=== PATIENT | female | born 1985 | race Caucasian/White ===

== ENCOUNTER 2024-03-19 10:04 | Outpatient (CLI) | payer OTHER, SELFPAY ==
[2024-03-19 14:37] LABS: Bacterial Vaginosis* POSITIVE (Negative); Candida glab/krus NOT DETECTED (No Detected); Candida species NOT DETECTED (No Detected); Trichomonas vaginalis NOT DETECTED (No Detected)
== END 2024-03-19 10:05 | disposition home or self-care (01) ==
LOC: FRMREF 10:04
PROVIDERS: Visit Provider Obstetrics & Gynecology
DX: N89.8 Other specified noninflammatory disorders of vagina (principal)
CPT/HCPCS: 81513; 87481; 87661

== ENCOUNTER 2024-07-18 14:54 | Outpatient (CLI) | payer OTHER, SELFPAY | END 2024-07-18 14:55 | disposition home or self-care (01) | LOC: NFLDREF 07-23 01:11 | PROVIDERS: Visit Provider Nurse Practitioner Family | DX: R10.9 Unspecified abdominal pain (principal); R39.89 Other symptoms and signs involving the genitourinary system | CPT/HCPCS: 87086 ==

== ENCOUNTER 2024-07-18 15:40 | Emergency (ER) | payer OTHER, SELFPAY ==
--- OUTSIDE RECORDS SUMMARY | 2024-07-18 15:42 | XMS_ITS | Clinical Summary ---
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 02/19 Overview (02/29/2024): 02/2024 ASCUS/HPV negative Plan: HPV-based testing due 02/2027 Social History Tobacco Use Types Packs/Day Years Used Date Smoking Tobacco: Never Smokeless Tobacco: Never Tobacco Cessation:Counseling Given: Not Answered Alcohol Use Standard Drinks/Week Comments Yes 0 (1 standard drink = 0.6 oz pur e alcohol) PHQ-2 Answer Date Recorded PHQ-2 TOTAL SCORE 0 02/21/2024 Comments No Sex and Gender Information Value Date Recorded Sex Assigned at Not on file Legal Sex Female 10:26 AM LAB ENGINEER Gender Identity Not on file Sexual Orientation Not on file Obstetrics History Para Term AB IAB SAB Ectopic Multiple Livin g Live Births 7 5 5 2 2 5 Date Outcome GA Total Labor Labor/2nd/3rd Weight Sex Type Anes PTL Diane A1 A5 Name Clin SAB SAB Term Term Term Term Term Last Filed Vital Signs Vital Sign Reading Time Taken Comments Blood Pressure 102/60 02/21/2024 4:10 PM LAB ENGINEER Pulse 74 02/21/2024 4:10 PM LAB ENGINEER Temperature - - Respiratory Rate - - Oxygen Saturation - - Inhaled Oxygen Concentration - - Weight 59.9 kg (132 lb) 02/21/2024 4:10 PM LAB ENGINEER Height 157.5 cm (5' 2) 02/21/2024 4:10 PM LAB ENGINEER Body Mass Index 24.14 02/21/2024 4:10 PM LAB ENGINEER Plan of Treatment Health Maintenance Due Date Last Done Comments Tdap 1997 HIV for age 15-65 2001 Hepatitis C screening for ag e 18-79 2004 Hepatitis B series for 19+ ( 1 of 3 - 19+ 3-dose series) 2005 Tetanus booster 2006 COVID-19 vaccine series ( season) 2023 Influenza Vaccine (Season Ended) 2024 BMI (ht and wt on same day) for age 18+ 02/20/2025 02/21/2024 Depression screening for age 12+ 02/20/2025 02/21/2024 Pap test for age 21-65 02/20/2027 , 02/21/2024 Pneumococcal series for age 6-49 Aged Out No longer eligible b ased on patient's age to complete this topic Procedures Procedure Name Priority Date/Time Associated Diagnosis Comments GLAZIER STRUCT[employer] GLASS THIN PREP PAP SCREEN IMAGED Routine 02/21/2024 4:09 PM LAB ENGINEER Screening for malignant neoplasm of cervix from Last 3 Months or Most Recently Relevant to Health Maintenance Results * (ABNORMAL) GLAZIER STRUCT[employer] GLASS THIN PREP PAP SCREEN IMAGED (02/21/2024 4:09 PM LAB ENGINEER) Case Report Gynecologic Cytology Report Case: [id number] Authorizing Provider: Liliana Yanes NP Collected: 02/21/2024 1609 Ordering Location: [facility] Received: 02/22/2024 0[facility] First Screen: Juju Bender Pathologist: Shruthi Narvaez MD Specimen: GLAZIER STRUCTURAL GLASS ThinPrep Vial Screening, Cervical 02/29/2024 2:20 PM LAB ENGINEER [facility] INTERPRETATION/ RESULT ATYPICAL SQUAMOUS CELLS OF UNDETERMINED SIGNIFICANCE (ASCUS)(A) (none) 02/29/2024 2:20 PM LAB ENGINEER [facility] at 1420 LAB ENGINEER SPECIMEN ADEQUACY Satisfactory for evaluation Endocervical component present 02/29/2024 2:20 PM LAB ENGINEER [facility] HPV REQUEST HPV and PAP 02/29/2024 2:20 PM LAB ENGINEER [facility] Date of LMP 12-16-24 02/29/2024 2:20 PM LAB ENGINEER [facility] Last Pap Date outside [facility] 025 2:20 PM LAB ENGINEER [facility] Last Pap Result NIL 2:20 PM LAB ENGINEER [facility] Abnormal Pap or [place] Bx in last 5 years Yes 02/29/2024 2:20 PM LAB ENGINEER [facility] Menstrual Status Regular Periods 02/29/2024 2:20 PM LAB ENGINEER [facility] [place] Bx Done Today No 02/29/2024 2:20 PM LAB ENGINEER [facility] Additional Information None given 02/29/2024 2:20 PM LAB ENGINEER [facility] Comment: Cytology is screened at [facility] - [address], [place] [address] and [facility] - [address], [place] [address] and [facility] - [address] [place] [address] Interpreted at [facility] - [address], [place] [address] Automated Review Successful 02/29/2024 2:20 PM LAB ENGINEER [facility] Comment:Specimen processed s uccessfully by automated clothes designer device, ThinPrep Imaging System, [employer] ANCILLARY TESTING GLAZIER STRUCTURAL GLASS HPV Ordered, Please see separate report 02/29/2024 2:20 PM LAB ENGINEER [facility] Note The pap test is a screening technique, not a diagnostic procedure. It is used primarily to screen for squamous cancers and precursor lesions. Published studies have shown that it is subject to both false negative and false positive results. The pap test should not be used as the sole means to diagnose or exclude pre-malignant and malignant lesions. 02/29/2024 2:20 PM LAB ENGINEER [facility] Other (Cervical) Non-Blood / Unknown 02/21/2024 4:09 PM LAB ENGINEER 02/22/2024 7:53 AM LAB ENGINEER [place] Liliana Yanes NP PATHOLOGY/CYTOLOGY Renetta jeter Result [facility] [address] [place] [address], [place] from Last 3 Months or Most Recently Relevant to Health Maintenance Insurance [facility] [employer] Care Teams Telegraph Repeater Installer Relationship Specialty Start Date End Date Pcp, No . PCP - General 02/16/24
--- OUTSIDE RECORDS SUMMARY | 2024-07-18 15:42 | XMS_ITS | Clinical Summary ---
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
--- OUTSIDE RECORDS SUMMARY | 2024-07-18 15:42 | XMS_ITS | Encounter Summary ---
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 Name Role Phone Unavailable Primary Care Provider Unavailabl e Prior Encounters Date Type Department Care Team Description 03/10/2019 Converted CPS Chart Documents [facility] [address] [place] [id number] <No scans attached> 03/10/2019 Converted 13x Documents [facility] [address] [place] [id number] <No scans attached> Plan of Treatment Not on file Procedures Procedure Name Priority Date/Time Associated Diagnosis Comments CHLORHEXIDINE Routine 02/06/2018 2:00 AM DELIVERY AND INSTALLATION SUBCONTRACTOR 32 LIMITED ORAL EVALUATION - PROBLEM FOCUSED Routine 02/06/2018 2:00 AM DELIVERY AND INSTALLATION SUBCONTRACTOR PANORAMIC RADIOGRAPHIC IMAGE Routine 02/06/2018 2:00 AM DELIVERY AND INSTALLATION SUBCONTRACTOR ADDITIONAL X-RAY Routine 02/06/2018 2:00 AM DELIVERY AND INSTALLATION SUBCONTRACTOR SINGLE X-RAY Routine 02/06/2018 2:00 AM DELIVERY AND INSTALLATION SUBCONTRACTOR Visit Diagnoses Not on file
[2024-07-18 15:48] VITALS: BP 119/81; PULSE 97; RESP 16; TEMP 36.9; O2SAT 99; BMI 23.8
--- NOTE | 2024-07-18 16:01 | CRLHL7_ITS ---
For Patients: As a result of the Century Cures Act, medical imaging exams and procedure reports are released immediately into your electronic medical record. You may view this report before your referring provider. If you have questions, please contact your health care provider. INDICATION: RT FLANK PAIN X 4 DAYS, UTI TECHNIQUE: CT abdomen and pelvis acquired with 64 cc Isovue 370 IV contrast. COMPARISON: None. FINDINGS: Lower chest: The visualized lower lungs are aerated. No pleural or pericardial effusion. ABDOMEN: Liver: Normal enhancement. No focal suspicious hepatic lesions. Gallbladder and biliary: Normal gallbladder without radiopaque stone. Normal caliber bile ducts. Spleen: Normal size and enhancement. Pancreas: Normal enhancement without peripancreatic inflammatory changes or ductal dilatation. Adrenal glands: Normal adrenal glands. Kidneys and ureters: Mild right-sided hydroureteronephrosis with associated ureteral hyperemia. No discrete obstructing stone.. Punctate nonobstructing right-sided renal stone. Normal renal enhancement. GI tract: Stomach is partially distended with oral debris and air. Normal caliber small and large bowel loops. Normal appendix. Vascular structures: Normal caliber abdominal aorta. Lymph nodes: No lymphadenopathy in the abdomen or pelvis by size criteria. Peritoneum: Trace free fluid pelvis. No free air or focal drainable collection. PELVIS: Genitourinary system: Retroverted uterus. Age-appropriate ovaries. Dominant left ovarian corpus luteum cyst. There is hyperemia and circumferential wall thickening of the urinary bladder. Recommend correlation with urinalysis if not already performed to assess for underlying cystitis. SKELETAL STRUCTURES AND SOFT TISSUES: Transitional lumbosacral anatomy. IMPRESSION: Hyperemia and circumferential wall thickening of the urinary bladder. Associated mild right-sided hydroureteronephrosis with ureteral hyperemia without obstructing stone. Constellation of findings raise concern for underlying developing ascending urinary tract infection. No discrete abnormal enhancement of the renal parenchyma. Please note that all CT scans at this facility use dose modulation, iterative reconstruction, and/or weight-based dosing when appropriate to reduce radiation dose to as low as reasonably achievable. Dictated by Andrey Davison MD @ 07/18/2024 5:01:51 PM (Electronically Signed)
[2024-07-18 16:26] LABS: Basophils Absolute Auto 0.02 K/uL (0.00-0.30); Basophils Percent Auto 0.2 % (0.0-3.0); Eosinophils Absolute Auto 0.08 K/uL (0.00-0.50); Eosinophils Percent Auto 0.8 % (0.0-7.0); Hematocrit 37.9 % (33.0-51.0); Hemoglobin* 12.6 gm/dL (12.0-16.0); Immature Granulocytes Abs Auto 0.01 K/uL (0.00-0.30); Immature Granulocytes Pct Auto 0.1 %; Mean Corpuscular HGB Conc 33 gm/dL (32-36); Mean Corpuscular Hemoglobin 31 pg (26-34); Mean Corpuscular Volume 93 fL (80-100); Monocytes Percent Auto 6.5 % (0.0-11.0); Neutrophils Percent Auto 74.4 % (42.0-72.0); Platelet Count* 205 K/uL (140-440); RDW Coefficient of Variation % 12.7 % (11.5-15.5); Red Blood Count 4.06 m/uL (4.00-5.20); White Blood Count* 9.73 K/uL (4.50-11.00)
[2024-07-18 16:31] LABS: Slide Review Reflex No
[2024-07-18] MEDS: KETOROLAC 15 MG/ML inj IVP (16:35)
[2024-07-18 16:38] LABS: Chloride* 103 mmol/L (96-114); Potassium* 3.8 mmol/L (3.6-5.1); Sodium* 137 mmol/L (135-149)
[2024-07-18 16:41] LABS: Anion Gap 8 mEq/L (7-15); Blood Urea Nitrogen* 12 mg/dL (5-24); Calcium* 9.2 mg/dL (8.4-10.6); Carbon Dioxide* 26 mmol/L (20-32); Creatinine* 0.6 mg/dL (0.5-1.5); Est. Creatinine Clearance* 100.55; Estimated Glomerular Filt Rate 118 ml/min; Glucose* 103 mg/dL (60-115)
--- NOTE | 2024-07-18 16:48 | ED.GENADULT ---
HPI - General Adult General Date Seen: 07/18/24 Chief complaint: Flank Pain Stated complaint: UTI referred by clinic Time Seen by Provider: 07/18/24 15:55 Source: patient Mode of arrival: ambulatory Limitations: no limitations History of Present Illness HPI narrative: Patient is a 39-year-old female presenting to the emergency department for concerns of a UTI and/or kidney stone. She was seen in urgent care today for 4 days of urinary frequency and dysuria. When past 24 hours the patient insert male be right flank pain also. She states the flank pain is sharp and moving around seems to make the pain worse. 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 Symptoms have been gradually getting worse throughout the day. Her last menstrual period was 17 days ago. Had a urinalysis done at the urgent care which showed signs of a UTI. They then called our emergency department for transfer for better evaluation. Patient denies having symptoms like this before. Denies fevers, chills, chest pain, shortness of breath, weakness, numbness, abdominal pain, diarrhea, constipation. No other concerns noted at this time. Related Data Previous Rx's ?Medication ?Instructions ?Recorded metronidazole 500 mg tablet 500 mg PO BID #14 tabs 03/19/24 triamcinolone acetonide 0.1 % 1 applic topical QID #30 grams 03/19/24 topical cream valacyclovir 1 gram tablet 2,000 mg (2 x 1 gram) PO BID 2 03/19/24 days #8 tabs cefpodoxime 200 mg tablet 200 mg PO BID 10 days #20 tabs 07/18/24 ketorolac 10 mg tablet 10 mg PO Q6H PRN pain #20 tabs 07/18/24 ondansetron 4 mg disintegrating 4 mg PO Q6H #20 tabs 07/18/24 tablet Allergies Allergy/AdvReac Type Severity Reaction Status Date / Time No Known Drug Allergies Allergy Verified 07/18/24 16:31 Review of Systems Status of ROS: Reports: 10 or more systems reviewed and unremarkable except as noted in History and below PFSH PFSH Family History Mother Alcohol dependence High blood pressure High cholesterol Diabetes Sister Alcohol dependence Social History Narrative: Cis gender, heterosexual woman Relationship status: . Partner: Jim Tobacco use: Lifetime nonsmoker E cigarette use: No Alcohol use: Yes, socially Illicit/recreational drug use: No Exercise: No Dietary restriction: No Exam Narrative: Exam Narrative: Const: Well-nourished, Well-developed, in moderate distress Eyes: PERRL, no conjunctival injection, and symmetrical lids HENT: Atraumatic external nose and ears. Moist mucous membranes. Neck: Symmetric, trachea midline, No thyromegaly. CVS: RRR, No murmurs or gallops. Peripheral pulses 2+ and equal in all extremities RESP: Unlabored respiratory effort. Clear to auscultation bilaterally. GI: Nontender/Nondistended, No rebound or guarding. Right CVA tenderness MSK:Extremities w/o deformity, Normal Active ROM Skin: Warm, Dry. No rashes or lesions. Neuro: Normal Muscle tone, No focal neurological deficits. Psych: Awake, Alert, & Oriented x3. Appropriate mood and affect. Const: Vital Signs, click to edit/add: Vital Signs - 24 hr 07/18/24 15:48 Temperature 98.4 F Pulse Rate [Pulse Oximeter] 97 Respiratory Rate 16 Blood Pressure [Ri ght Upper Arm] 119/81 Pulse Oximetry 99 Oxygen Delivery Me thod Room Air Course Vital Signs Vital signs: Initial Vital Signs Temperature 98.4 F 07/18/24 15:48 Temperature Source Oral 07/18/24 15:48 Pulse Rate 97 07/18/24 15:48 Respiratory Rate 16 07/18/24 15:48 Blood Pressure 119/81 07/18/24 15:48 Blood Pressure Mean 93 07/18/24 15:48 Blood Pressure Position Sitting 07/18/24 15:48 Pulse Oximetry 99 07/18/24 15:48 Oxygen Delivery Method Room Air 07/18/24 15:48 Vital Signs Temperature 98.4 F 07/18/24 15:48 Pulse Rate 97 07/18/24 15:48 Respiratory Rate 16 07/18/24 15:48 Blood Pressure 119/81 07/18/24 15:48 Pulse Oximetry 99 07/18/24 15:48 Oxygen Delivery Method Room Air 07/18/24 15:48 Temperature 98.4 F 07/18/24 15:48 Pulse Rate 97 07/18/24 15:48 Respiratory Rate 16 07/18/24 15:48 Blood Pressure 119/81 07/18/24 15:48 Pulse Oximetry 99 07/18/24 15:48 Oxygen Delivery Method Room Air 07/18/24 15:48 Medications Administered Medications: Discontinued Medications Generic Name Dose Route Start Last Admin Trade Name Freq PRN Reason Stop Dose Admin Ceftriaxone Sodium 1 gm/ 100 mls @ 200 mls/hr 07/18/24 16:57 07/18/24 18:07 Sodium Chloride IVPB 07/18/24 16:58 Infused ONCE ONE Infusion Ketorolac Tromethamine 15 mg 07/18/24 16:19 07/18/24 16:35 Ketorolac 15 Mg/Ml Inj IVP 07/18/24 16:20 15 mg ONCE ONE Administration Medical Decision Making MDM Narrative Medical decision making narrative: Patient is a 39-year-old female presenting for signs of UTI and flank pain. There is concerned she could have an infected kidney stone I will do a CT scan. Will do this with IV contrast also evaluate for any infection. She has a low risk patient for iliac aneurysm rupture and overall her vitals are stable. Will give her Toradol for pain. Order CBC and BMP along with the CT scan. She really has a urinalysis and test from urgent care and we do not need to repeat this. CBC and BMP showed no acute concerning abnormalities. She is feeling much better after the Toradol. CT scan returned showing signs of acute cystitis with concerns of an ascending UTI on the right. There is some mild right-sided hydroureteronephrosis in your little hyperemia but no obstructing stone. I will give the patient dose of IV Rocephin prior to discharge. She does feel comfortable discharging just wants a prescription of Toradol. Also give her some Zofran. Antibiotic prescription sent. Lab Data Labs: Lab Results 07/18/24 Range/Units 16:15 WBC 9.73 (4.50-11.00) K/uL RBC 4.06 (4.00-5.20) m/uL Hgb 12.6 (12.0-16.0) gm/dL Hct 37.9 (33.0-51.0) % MCV 93 (80-100) fL MCH 31 (26-34) pg MCHC 33 (32-36) gm/dL RDW Coeff of Ana 12.7 (11.5-15.5) % Plt Count 205 (140-440) K/uL Neut % (Auto) 74.4 H (42.0-72.0) % Lymph % (Auto) 18.0 L (20-44) % Slope % (Auto) 6.5 (0.0-11.0) % Eos % (Auto) 0.8 (0.0-7.0) % Baso % (Auto) 0.2 (0.0-3.0) % Neut # (Auto) 7.20 H (1.7-7.0) K/uL Lymph # (Auto) 1.80 (0.90-2.90) K/uL Slope # (Auto) 0.60 (0.00-0.90) K/UL Eos # (Auto) 0.08 (0.00-0.50) K/uL Baso # (Auto) 0.02 (0.00-0.30) K/uL Abs Immat Gran (auto) 0.01 (0.00-0.30) K/uL Imm/Tot Granulo (auto) 0.1 % Sodium 137 (135-149) mmol/L Potassium 3.8 (3.6-5.1) mmol/L Chloride 103 (96-114) mmol/L Carbon Dioxide 26 (20-32) mmol/L Anion Gap 8 (7-15) mEq/L BUN 12 (5-24) mg/dL Creatinine 0.6 (0.5-1.5) mg/dL Estimated Creat Clear 100.55 Estimated GFR 118 ml/min Glucose 103 (60-115) mg/dL Calcium 9.2 (8.4-10.6) mg/dL Imaging Data CT scan abdomen and pelvis: Attestation: I have reviewed the pertinent imaging results. Radiologist's impression: Hyperemia and circumferential wall thickening of the urinary bladder. Associated mild right-sided hydroureteronephrosis with ureteral hyperemia without obstructing stone. Constellation of findings raise concern for underlying developing ascending urinary tract infection. No discrete abnormal enhancement of the renal parenchyma. Please note that all CT scans at this facility use dose modulation, iterative reconstruction, and/or weight-based dosing when appropriate to reduce radiation dose to as low as reasonably achievable. Dictated by Andrey Davison MD @ 07/18/2024 5:01:51 PM Discharge Plan Discharge Clinical Impression: UTI (urinary tract infection) Patient Disposition: Home, Self-Care Condition: Improved Instructions: Urinary Tract Infection in Women (ED) Additional Instructions: You do have a urinary tract infection but no signs of obstructing stone. Take the Toradol as needed for pain. While using Toradol do not use other NSAIDs. Use the Zofran as needed for nausea. Take the antibiotics as directed. Return to emergency department for new or worsening symptoms. Prescriptions: New cefpodoxime 200 mg tablet 200 mg PO BID 10 Days Qty: 20 0RF Rx Instructions: must administer with a meal/food ketorolac 10 mg tablet 10 mg PO Q6H PRN (Reason: pain) Qty: 20 0RF Rx Instructions: maximum total duration of 5 days from all oral, intranasal, or parenteral formulations ondansetron 4 mg tablet,disintegrating 4 mg PO Q6H Qty: 20 0RF No Action triamcinolone acetonide 0.1 % cream 1 applic topical QID Qty: 30 6RF valacyclovir 1 gram tablet 2,000 mg PO BID 2 Days Qty: 8 6RF metronidazole 500 mg tablet 500 mg PO BID Qty: 14 3RF Follow Up/Referrals: Provider,Not a Local [Primary Care Provider, Family Practice] Stand Alone Forms: MyHealth Info Instructions
[2024-07-18] MEDS: cefTRIAXone 1 GM in 0.9 % SODIUM CHLORIDE Mini-bag 100 ML IVPB (17:27)
== END 2024-07-18 18:13 | disposition home or self-care (01) ==
PROVIDERS: Emergency Provider Student in an Organized Health Care Education/Training Program
DX: N39.0 Urinary tract infection, site not specified (principal)
CPT/HCPCS: 36415; 74177; 80048; 85025; 96365; 96375; 99284; 99285; J0696; J1885; Q9967

== ENCOUNTER 2024-12-31 12:03 | Outpatient (CLI) | payer OTHER, SELFPAY ==
--- NOTE | 2024-12-31 12:15 | CRLHL7_ITS ---
For Patients: As a result of the Cures Act, medical imaging exams and procedure reports are released immediately into your electronic medical record. You may view this report before your referring provider. If you have questions, please contact your health care provider. OB ULTRASOUND INDICATION: Dating and viability. TECHNIQUE: Real time grayscale imaging of the fetus was performed. Transabdominal. LMP: 10/06/2024. DANTE by LMP: 07/13/2025. GA: 12 w, 2 d. Previous US: No. CRL: 7.1 cm. 13 w 2 d. DANTE: 07/06/2025. FHR: 157 BPM. Gestational sac: 6.4 cm. Appears within normal limits. Yolk sac: N/V. Right ovary: 2.0 x 1.2 x 0.9 cm. Left ovary: 2.8 x 1.4 x 2.7 cm. CL. IMPRESSION: Single living intrauterine measures 13 weeks 2 days with sonographic due date 07/06/2025. Andrey Farmer M.D. Diagnostic Radiologist [email or web address] coto/Dictated by: Andrey Farmer MD @ 12/31/2024 2:06:00 PM (Electronically Signed)
== END 2024-12-31 12:04 | disposition home or self-care (01) ==
PROVIDERS: Visit Provider Physician Assistant
DX: Z34.91 Encounter for supervision of normal pregnancy, unspecified, first trimester (principal); Z3A.13 13 weeks gestation of pregnancy
CPT/HCPCS: 76801

== ENCOUNTER 2024-12-31 13:10 | Outpatient (CLI) | payer OTHER, SELFPAY ==
[2024-12-31 22:38] LABS: Chlamydia DNA Amplified* NOT DETECTED (No Detected); GC DNA Amplified* NOT DETECTED (No Detected)
== END 2024-12-31 13:11 | disposition home or self-care (01) ==
PROVIDERS: Visit Provider Physician Assistant
DX: O09.521 Supervision of elderly multigravida, first trimester (principal)
CPT/HCPCS: 83020; 83021; 85660; 86592; 86703; 86704; 86706; 86762; 86787; 86803; 86850; 86900; 86901; 87086; 87340; 87491; 87591